=== PATIENT | female | born 1990 | race American Indian/Alaskan Native ===

== ENCOUNTER 2018-12-31 11:21 | Outpatient (CLI) | payer OTHER ==
[2018-12-31 12:06] VITALS: BP 101/57
--- NOTE | 2019-01-03 13:14 | Ultrasound Report ---
Limited OB ultrasound INDICATION: Evaluate amniotic fluid index FINDINGS: There is a single intrauterine in a breech presentation. Amniotic fluid index is 13.5 cm wh ich is normal. heart rate is 151 bpm. IMPRESSION: Amniotic fluid index is normal. Fetus is in a breech presentation. Signer Name: Reid Bell MD Signed: 01/03/2019 1:10 PM Workstation Name: [id number]
== END 2018-12-31 14:22 | disposition home or self-care (01) ==
LOC: TRG 11:21
PROVIDERS: ATTEND Obstetrics & Gynecology
DX: O42.912 Preterm premature rupture of membranes, unspecified as to length of time between rupture and onset of labor, second trimester (principal); Z3A.26 26 weeks gestation of pregnancy
CPT/HCPCS: 59025; 76815

== ENCOUNTER 2019-03-30 01:55 | Outpatient (CLI) | payer OTHER ==
[2019-03-30 02:18] VITALS: BP 110/71
== END 2019-03-30 04:17 | disposition home or self-care (01) ==
LOC: TRG 01:55
PROVIDERS: ATTEND Obstetrics & Gynecology
DX: O47.1 False labor at or after 37 completed weeks of gestation (principal); Z3A.39 39 weeks gestation of pregnancy
CPT/HCPCS: 59025